=== PATIENT | female | born 1970 | race Caucasian/White ===

== ENCOUNTER → 2024-05-01 12:36 | Outpatient (CLI) | payer BC, SELFPAY ==
--- NOTE | 2024-05-01 12:38 | DI.RAD.S_ITS ---
PROCEDURE: XR HAND LT MIN 3V INDICATIONS: pain of left hand TECHNIQUE: 3 views of the hand(s) acquired. COMPARISON: None. FINDINGS: Bones: No fractures or dislocations. There is a oblique lucency in the distal 3rd proximal phalanx. Carpal bones are normally aligned. No suspicious bony lesions. Soft tissues: No suspicious soft tissue calcifications. Soft tissue swelling in the proximal 3rd finger. IMPRESSION: 1. Oblique consistency in the distal aspect of the 3rd proximal phalanx, probably a prominent nutrient vessel. There is, however, associated soft tissue swelling in the proximal 3rd finger. Differential diagnosis is a nondisplaced fracture. Consider a follow-up exam in 7-10 days if pain persists. Dictated by: Jorge L Sharp M.D. on 05/01/2024 at 15:34 Approved by: Jorge L Sharp M.D. on 05/01/2024 at 15:38
[2024-05-01 13:10] LABS: Hemoglobin A1C% w Est Avg Glu 5.7 % (4.0-6.0)
[2024-05-01 13:21] LABS: Uric Acid 5.1 mg/dL (2.5-6.2)
[2024-05-01 13:27] LABS: Rheumatoid Factor < 8.6 IU/mL (<12.0)
[2024-05-05 13:11] LABS: CCP Antibodies IgG/IgA 4 units (0-19)
== END ==
PROVIDERS: PCP Family Medicine; Referring Provider Family Medicine; Visit Provider Family Medicine
DX: M79.642 Pain in left hand (principal); M79.89 Other specified soft tissue disorders; E66.3 Overweight; G25.81 Restless legs syndrome; D68.61 Antiphospholipid syndrome
CPT/HCPCS: 36415; 73130; 83036; 84550; 86200; 86430

== ENCOUNTER → 2024-05-06 15:20 | Outpatient (CLI) | payer BC, SELFPAY ==
--- NOTE | 2024-05-06 15:21 | DI.RAD.S_ITS ---
PROCEDURE: XR DEXA AXIAL SKELETON INDICATIONS: History of fracture, menopause COMPARISON: None. FINDINGS: Lumbar Spine: Bone mineral density 0.829 g/cm2, T score -2.0,. Left Hip: Bone mineral density 0.98 g/cm2, T score 0.4,. Left Femoral Neck: Bone mineral density 0.803 g/cm2, T score -0.4,. Right Hip: Bone mineral density 1. 017 g/cm2, T score 0.6,. Right Femoral Neck: Bone mineral density 0.971 g/cm2, T score 1.1,. Fracture Risk Calculation (when applicable): 10-year fracture risk of a major osteoporotic fracture 13% and of a hip fracture 0.1%. (T score greater or equal to -1.0 to: NORMAL) (T score from -1.1 to -2.4: OSTEOPENIA) (T score less than or equal to -2.5: OSTEOPOROSIS) IMPRESSION: Moderate osteopenia in the lumbar spine. Follow-up guidelines as follows: Osteoporosis: Consider a repeat DEXA and Vertebral Fracture Assessment (VFA) exam in 2 years or sooner if medically necessary, to reassess this patient's status. Osteopenia: Consider a repeat DEXA in 2-3 years to reassess this patient's status, or if there is a new clinical indication. Normal: Consider a repeat DEXA in 5 years or sooner, or if there is a new clinical indication. All treatment decisions require clinical judgment and consideration of individual patient factors, including patient preferences, comorbidities, previous drug use, risk factors not captured in the FRAX model (e.g., frailty, falls, vitamin D deficiency, increased bone turnover, interval significant decline in bone density ) and possible under- or over-estimation of fracture risk by FRAX. In addition, the NOF Guide recommends that FDA-approved medical therapies be considered in postmenopausal women and men age >= 50 years with a: * Hip or vertebral (clinical or morphometric) fracture * T-score of <=-2.5 at the spine or hip * Ten-year fracture probability by FRAX of >= 3% for hip fracture or >=20% for major osteoporotic fracture. People with diagnosed cases of osteoporosis or at high risk for fracture should have regular bone mineral density tests. For patients eligible for Medicare, routine testing is allowed once every 2 years. The testing frequency can be increased to one year for patients who have rapidly progressing disease, those who are receiving or discontinuing medical therapy to restore bone mass, or have additional risk factors. Dictated by: Tatyana Martínez M.D. on 05/06/2024 at 16:20 Approved by: Tatyana Martínez M.D. on 05/06/2024 at 16:22
== END ==
PROVIDERS: PCP Family Medicine; Referring Provider Family Medicine; Visit Provider Family Medicine
DX: M85.88 Other specified disorders of bone density and structure, other site (principal); Z78.0 Asymptomatic menopausal state; Z87.81 Personal history of (healed) traumatic fracture; Z87.312 Personal history of (healed) stress fracture
CPT/HCPCS: 77080

== ENCOUNTER → 2024-05-08 18:14 | Outpatient (CLI) | payer BC, SELFPAY ==
--- NOTE | 2024-05-08 18:15 | DI.RAD.S_ITS ---
PROCEDURE: XR HAND LT MIN 3V INDICATIONS: left hand pain TECHNIQUE: 3 views of the hand(s) acquired. COMPARISON: [facility], CR, XR HAND LT MIN 3V, 05/01/2024, 12:00. FINDINGS: Bones: Oblique lucency in the distal 3rd proximal phalanx with intra-articular extension into the PIP joint appears similar to the prior exam. Corticated ossific density adjacent to the ulnar styloid likely represents sequela of remote injury. Mild diffuse IP joint space narrowing and juxta-articular osteophytosis. Carpal bones are normally aligned. No suspicious bony lesions. Soft tissues: No suspicious soft tissue calcifications. IMPRESSION: 1. Oblique lucency in the distal 3rd proximal phalanx with intra-articular extension into the PIP joint appears similar to the prior exam and likely represents a nutrient channel, less likely a fracture. Correlate for point tenderness. 2. Mild diffuse IP joint osteoarthritis. Dictated by: Kerry Marshall M.D. on 05/09/2024 at 14:46 Approved by: Kerry Marshall M.D. on 05/09/2024 at 14:48
== END ==
PROVIDERS: PCP Family Medicine; Referring Provider Family Medicine; Visit Provider Family Medicine
DX: M19.042 Primary osteoarthritis, left hand (principal); M79.642 Pain in left hand
CPT/HCPCS: 73130

== ENCOUNTER → 2024-06-26 07:58 | Outpatient (CLI) | payer BC, SELFPAY ==
--- NOTE | 2024-06-26 07:59 | DI.MRI.S_ITS ---
PROCEDURE: MR HAND LT WO CON INDICATIONS: NONDISPLACED FX OF PROXIMAL PHALANX LT MIDDLE FING TECHNIQUE: Noncontrast coronal T1 spin echo and T2 fast spin echo with fat saturation, axial proton density fast spin echo and T2 fast spin echo with fat saturation, sagittal T1 spin echo and STIR through the hand and fingers. COMPARISON: None. FINDINGS: Image quality: Excellent. Bones: There is marked marrow edema involving the 3rd proximal phalangeal head, extending into the diaphysis, and to a lesser extent involving the base of the 3rd middle phalanx, representing marrow contusion. No fracture line. Moderate amount of fluid within the 3rd proximal interphalangeal joint. Interphalangeal joint(s): There is full-thickness tear of the ulnar collateral ligament at the 3rd proximal interphalangeal joint, at the 3rd proximal phalangeal head. No significant ligamentous retraction. Metacarpophalangeal joint(s): The accessory and proper collateral ligaments appear intact, as well as the volar plate and adjacent deep transverse metacarpal ligaments. The sagittal bands of the extensor hawley appear normal. Extensor apparatus: The central slips insert normally on the middle phalangeal base. The conjoint and terminal tendons insert normally on the distal phalangeal bases. More proximal portions of the extensor tendons also appear normal. Flexor apparatus: The flexor digitorum superficialis and profundus tendons both appear intact. All annular and cruciform pulleys appear intact, without adjacent soft tissue edema. Soft tissues: Visualized muscles demonstrate normal bulk and internal signal. No intramuscular masses identified. No ganglion cysts. IMPRESSION: 1. Marked marrow contusion of the 3rd proximal phalangeal head extending to the diaphysis, and to a lesser extent involving the base of the 3rd middle phalanx, presenting marrow contusion. No acute fracture. 2. Full-thickness tear of the ulnar collateral ligament at the 3rd proximal interphalangeal joint. Dictated by: Angle Mejía M.D. on 06/26/2024 at 11:03 Approved by: Angle Mejía M.D. on 06/26/2024 at 11:10
== END ==
LOC: MRI 07:58
PROVIDERS: PCP Family Medicine; Referring Provider Orthopaedic Surgery; Visit Provider Orthopaedic Surgery
DX: S62.64 Nondisplaced fracture of proximal phalanx of finger (principal); S63.633A Sprain of interphalangeal joint of left middle finger, initial encounter
CPT/HCPCS: 73218

== ENCOUNTER → 2024-12-17 14:01 | Outpatient (CLI) | payer BC, SELFPAY ==
--- NOTE | 2024-12-30 15:38 | DIET.OUTPTC ---
Dietary Outpatient Consultation Note Consultation Date: 12/17/2024 Assessment: 54 y F referred to dietitian for preDM and HLD. Angela is looking for meal options that work for both her and her father who is living with her. Her father enjoys meat and potatoes. Working to find happy medium between plant forward dietary patterns she has been aiming for and father's preferences. Labs 08/28/24: Stable A1c at 5.8%, LDL 169, chol 262 Diet recall: L-spinach omelette and fruit, black coffee D-meat/fish/poultry, veg, pasta/potatoes/bread Fruit and yogurt Ht: 5 ft 8.5 in Wt: 180 lb BMI: 26.9 UBW: - Nutrition Diagnosis: Food and nutrition related knowledge deficit r/t wanting eating reccs for preDM and HLD aeb wanting to move forward with plant based dietary patterns Intervention: This participant was very receptive. Provided appropriate educational handouts. Discussed the following topics: Completed intake assessment. Plate Method, impact of macronutrients on blood sugar, meal timing, carbohydrate counting, pairing macronutrients and spreading out carbohydrates Recommended servings for carbohydrates at meals and snacks Heart health nutrition in regards to saturated fats and label reading, fiber Brainstormed appropriate meal plan based on food preferences Role of physical activity Goals: Portion sized carb at dinner 1-2/3 c or 30-45 g, fibrous non-starchy vegetable enjoyed by both, spaced out dinner and post dinner snack, breakfast with 2-3 CHO serving + protein choice as desired Monitoring/Evaluations: f/u 2-3 months, pt feeling confident in dietary changes made so far Electronically Signed by: Carmen Crowe 12/30/24 15:38 Clinical Dietitian [address] [id number]
== END ==
PROVIDERS: PCP Family Medicine; Referring Provider Family Medicine
DX: R73.03 Prediabetes (principal); E78.5 Hyperlipidemia, unspecified; Z71.3 Dietary counseling and surveillance; Z68.26 Body mass index [BMI] 26.0-26.9, adult
CPT/HCPCS: 97802

== ENCOUNTER → 2024-12-19 10:40 | Outpatient (CLI) | payer BC, SELFPAY ==
--- NOTE | 2024-12-19 10:41 | DI.MG.S_ITS ---
BILATERAL DIGITAL SCREENING MAMMOGRAM 3D/2D WITH CAD: 12/19/2024 CLINICAL: Routine screening. Family history of breast cancer. Comparison is made to exams dated: 10/10/2023 mammogram, 09/08/2022 mammogram, and 08/19/2021 mammogram - out side. The breasts are heterogeneously dense, which may obscure small masses (category c / 51-75% glandular tissue). Current study was also evaluated with a Computer Aided Detection (CAD) system. There are benign calcifications in both breasts. No significant masses, calcifications, or other findings are seen in either breast. There has been no significant interval change. IMPRESSION: BENIGN There is no mammographic evidence of malignancy. A 1 year screening mammogram is recommended. Based on the Tyrer Cuzick model (a risk assessment model) the patient's lifetime risk is 16.0% and her 10 year risk is 5.0%. According to the ACR, ACS, and NCCN guidelines, an annual breast MRI exam along with mammogram is recommended if the patient's lifetime risk is 20% or greater. This exam was interpreted at Station ID: [id number]. NOTE: For mammograms, a report in lay terms will be sent to the patient. Approximately 15% of breast malignancies will not be visualized mammographically. In the management of a palpable breast mass, a negative mammogram must not discourage biopsy of a clinically suspicious lesion. Electronically Signed By: Reanna rush/ramsey:12/21/2024 17:03:30 letter sent: Normal Exam ACR BI-RADS Category 2: Benign
== END ==
PROVIDERS: PCP Family Medicine; Referring Provider Family Medicine; Visit Provider Family Medicine
DX: Z12.31 Encounter for screening mammogram for malignant neoplasm of breast (principal); R92.333 Mammographic heterogeneous density, bilateral breasts
CPT/HCPCS: 77063; 77067